=== PATIENT | female | born 1990 | race Caucasian/White ===

== ENCOUNTER 2017-10-22 13:56 | Emergency (ER) | payer SELFPAY ==
[2017-10-22 14:50] LABS: CHLORIDE,CL 103 mmol/L (98-107); SODIUM,NA 134 mmol/L (136-145)
[2017-10-22 14:51] LABS: ANION GAP 10.7 mmol/L (10-20)
--- NOTE | 2017-10-22 15:31 | EDM.PDOC ---
ED HPI GENERAL MEDICAL PROBLEM - General Chief Complaint: Chest Pain Stated Complaint: HEAVY CHEST Time Seen by Provider: 10/22/17 14:06 Source of Information: Reports: Patient History Limitations: Reports: No Limitations - History of Present Illness INITIAL COMMENTS - FREE TEXT/NARRATIVE: Patient reports chest heaviness, cough, chills since of this week. Her chest hurts worse with coughing. No fever that she has noticed. Coughing is not worse at night. She denies headache, neck or shoulder pain, chest pain. She also denies any abdominal pain, nausea or vomiting, no urinary symptoms and no blood in her urine or stools. She does smoke but does not take contraception. Rare drinking. Onset: Today Onset Date: 10/19/17 Duration: Intermittent, Recurring Location: Reports: Chest Quality: Reports: Ache Severity: Moderate Worsens with: Reports: Other (coughing) Associated Symptoms: Reports: cough w sputum, Fever/Chills Chest Pain Score (Numeric/FACES): 8 - Related Data Allergies Allergy/AdvReac Type Severity Reaction Status Date / Time No Known Allergies Allergy Verified 03/28/15 03:01 Home Meds: Home Meds . [No Known Home Meds] 10/28/15 [History] Past Medical History - Past Health History Medical/Surgical History: Denies Medical/Surgical History Respiratory History: Reports: Bronchitis, Recurrent - Past Surgical History Dermatological Surgical History: Reports: Other (See Below) Social & Family History - Family History Family Medical History: Noncontributory - Tobacco Use Smoking Status *Q: Current Every Day Smoker Years of Tobacco use: 8 Packs/Tins Daily: 0.5 - Caffeine Use Caffeine Use: Reports: None - Recreational Drug Use Recreational Drug Use: No ED ROS GENERAL - Review of Systems Review Of Systems: See Below Constitutional: Reports: Chills HEENT: Reports: No Symptoms Respiratory: Reports: Cough, Sputum Cardiovascular: Reports: Chest Pain Endocrine: Reports: No Symptoms GI/Abdominal: Reports: No Symptoms : Reports: No Symptoms Musculoskeletal: Reports: No Symptoms Skin: Reports: No Symptoms Neurological: Reports: No Symptoms Psychiatric: Reports: No Symptoms Hematologic/Lymphatic: Reports: No Symptoms Immunologic: Reports: No Symptoms ED EXAM, GENERAL - Physical Exam Exam: See Below Exam Limited By: No Limitations General Appearance: Alert, WD/WN, No Apparent Distress Eye Exam: Bilateral Eye: EOMI, Normal Inspection, PERRL Ears: Normal TMs Throat/Mouth: Normal Inspection, Normal Lips, Normal Teeth, Normal Gums, Normal Oropharynx, Normal Voice, No Airway Compromise Head: Atraumatic, Normocephalic Neck: Normal Inspection, Supple, Non-Tender, Full Range of Motion Respiratory/Chest: No Respiratory Distress, Lungs Clear, Normal Breath Sounds, No Accessory Muscle Use, Chest Non-Tender Cardiovascular: Normal Peripheral Pulses, Regular Rate, Rhythm, No Edema, No Gallop, No JVD, No Murmur, No Rub Peripheral Pulses: 2+: Posterior Tibial (L), Posterior Tibial (R), Dorsalis Pedis (L), Dorsalis Pedis (R) GI/Abdominal: Normal Bowel Sounds, Soft, Non-Tender, No Organomegaly, No Distention, No Abnormal Bruit, No Mass Back Exam: Normal Inspection, Full Range of Motion, NT Extremities: Normal Inspection, Normal Range of Motion, Non-Tender, Normal Capillary Refill, No Pedal Edema Neurological: Alert, Oriented, CN II-XII Intact, Normal Cognition, Normal Gait, Normal Reflexes, No Motor/Sensory Deficits Psychiatric: Normal Affect, Normal Mood Skin Exam: Warm, Dry, Intact, Normal Color, No Rash Lymphatic: No Adenopathy Course - Vital Signs Last Recorded V/S: Last Vital Signs Temp 37.7 C 10/22/17 14:57 Pulse 109 H 10/22/17 14:57 Resp 18 10/22/17 14:57 BP 138/87 10/22/17 14:57 Pulse Ox 98 10/22/17 14:57 - Orders/Labs/Meds Orders: Active Orders 24 hr Category Date Time Status EKG Documentation Completion [RC] DAILY Care 10/22/17 14:06 Active Chest 2V [CR] Stat Exams 10/22/17 14:06 Taken CULTURE STREP A CONFIRMATION [] Stat Lab 10/22/17 14:18 Results INFLUENZA A+B AG SCREEN [] Stat Lab 10/22/17 14:18 Ordered STREP SCRN A RAPID W CULT CONF [] Stat Lab 10/22/17 14:18 Ordered Labs: Laboratory Tests 10/22/17 10/22/17 10/22/17 Range/Units 14:20 14:20 14:20 WBC 9.8 (4.0-10.0) x10^3/uL RBC 4.66 (4.00-5.50) x10^6/uL Hgb 14.4 (12.0-16.0) g/dL Hct 42.0 (33.0-47.0) % MCV 90.1 (78.0-93.0) fL MCH 30.9 (26.0-32.0) pg MCHC 34.3 (32.0-36.0) g/dL RDW Coeff of Lola 12.6 (10.0-15.0) % Plt Count 226 (130-400) x10^3/uL Neut % (Auto) 73.7 (50.0-80.0) % Lymph % (Auto) 17.0 L (25.0-50.0) % Wilkes % (Auto) 6.4 (2.0-11.0) % Eos % (Auto) 2.6 (0.0-4.0) % Baso % (Auto) 0.3 (0.2-1.2) % D-Dimer, Quantitative 0.43 (<=0.58) mg/LFEU Sodium 134 L (136-145) mmol/L Potassium 3.7 (3.5-5.1) mmol/L Chloride 103 (98-107) mmol/L Carbon Dioxide 24 (21-32) mmol/L Anion Gap 10.7 (10-20) mmol/L BUN 9 (7-18) mg/dL Creatinine 1.0 (0.55-1.02) mg/dL Est Cr Clr Drug Dosing 86.00 mL/min Estimated GFR (MDRD) > 60 Glucose 91 (74-106) mg/dL Calcium 9.0 (8.5-10.1) mg/dL Corrected Calcium 9.24 (8.5-10.1) mg/dL Total Bilirubin 0.6 (0.2-1.0) mg/dL AST 28 (15-37) U/L ALT 56 (14-59) U/L Alkaline Phosphatase 93 (46-116) U/L Troponin I < 0.017 (<=0.056) ng/mL C-Reactive Protein 2.4 H (<=0.9) mg/dL Total Protein 7.7 (6.4-8.2) g/dL Albumin 3.7 (3.4-5.0) g/dL Globulin 4.0 Albumin/Globulin Ratio 0.93 Departure - Departure Time of Disposition: 15:59 Disposition: Home, Self-Care 01 Condition: Good Clinical Impression: Upper respiratory infection, viral - Discharge Information *PRESCRIPTION DRUG MONITORING PROGRAM REVIEWED*: Not Applicable *COPY OF PRESCRIPTION DRUG MONITORING REPORT IN PATIENT MARY: Not Applicable Instructions: Viral Respiratory Infection, [id number] Referrals: Amber Payan MD [Primary Care Provider] - Additional Instructions: Use over the counter treatments for your cough, stay well hydrated, and follow up in the clinic if you are not better in the next 7-10 days. This is likely being caused by a virus, therefore no antibiotics are indicated. Please call the hospital with any questions or concerns. - Problem List & Annotations (1) Upper respiratory infection, viral SNOMED Code(s): 149412231 Code(s): J06.9 - ACUTE UPPER RESPIRATORY INFECTION, UNSPECIFIED Status: Acute Priority: Low Current Visit: Yes - Problem List Review Problem List Initiated/Reviewed/Updated: Yes - My Orders Last 24 Hours: My Active Orders 10/22/17 14:06 EKG Documentation Completion [RC] DAILY Chest 2V [CR] Stat 10/22/17 14:18 CULTURE STREP A CONFIRMATION [RM] Stat INFLUENZA A+B AG SCREEN [RM] Stat STREP SCRN A RAPID W CULT CONF [RM] Stat - Assessment/Plan Last 24 Hours: My Active Orders 10/22/17 14:06 EKG Documentation Completion [RC] DAILY Chest 2V [CR] Stat 10/22/17 14:18 CULTURE STREP A CONFIRMATION [RM] Stat INFLUENZA A+B AG SCREEN [RM] Stat STREP SCRN A RAPID W CULT CONF [RM] Stat Assessment:: viral upper respiratory infection Plan: Use over the counter treatments for your cough, stay well hydrated, and follow up in the clinic if you are not better in the next 7-10 days. This is likely being caused by a virus, therefore no antibiotics are indicated. Please call the hospital with any questions or concerns.
[2017-10-22 15:53] VITALS: BP 134/86
[2017-10-22] MEDS: Take Home: predniSONE 20 MG, 2 Tab Pack PO ONE (16:10)
== END 2017-10-22 16:10 | disposition home or self-care (01) ==
LOC: VM.ED 13:56
DX: J06.9 Acute upper respiratory infection, unspecified (principal); F17.210 Nicotine dependence, cigarettes, uncomplicated
CPT/HCPCS: 36415; 71046; 80053; 84484; 85025; 85379; 86140; 87081; 87804; 87880; 93005; 99284; A9270; 99283-GF